=== PATIENT | male | born 1950 | race Caucasian/White ===

== ENCOUNTER 2018-03-10 20:54 | Emergency (ER) | payer OTHER ==
[~2018-03-10] VITALS: Ht 170.2 cm; Wt 81.7 kg
[~2018-03-10 20:54] MED LIST: ACETAMINOPHEN-1 EAC1 PO; BACTRIM DS TAB1 EACH PO; BACTROBAN CREAM30 G1 TOP; BACTROBAN CREAM30 GM; CEPHALEXIN 500500 M3 PO; CEPHALEXIN500 MG PO; KETOCONAZOLE 2200 MG PO; LEVAQUIN 500 M500 M2 PO; LOTRISONE CREAM15 GM TOP; NIZORAL A-D200 ML TOP; NOHOMEMEDICATIONS; NORCO 5-325 TA1 EACH PO; PAXIL10 MG PO; TESSALON PERLE100 MG PO; ZPAK PO; ZYRTEC10 M2 PO
[2018-03-10 21:04] VITALS: BP 141/90
[2018-03-10] MEDS ORDERED: ZPAK PO (21:06)
[2018-03-10] MEDS ORDERED: HYDROCODONE-AP1 EAC6 PO (21:06)
[2018-03-10] MEDS ORDERED: CIPROFLOXIN HC2.5 M1 OTIC (21:06)
== END 2018-03-10 21:13 | disposition home or self-care (01) ==
LOC: M.ERS 20:54
DX: H66.91 Otitis media, unspecified, right ear (principal); H60.91 Unspecified otitis externa, right ear; F17.210 Nicotine dependence, cigarettes, uncomplicated; Z88.0 Allergy status to penicillin

== ENCOUNTER 2018-07-19 10:12 | Emergency (ER) | payer OTHER ==
[~2018-07-19] VITALS: Ht 170.2 cm; Wt 83.9 kg
[~2018-07-19 10:12] MED LIST changes: +CIPROFLOXIN HC2.5 M1 OTIC; +HYDROCODONE-AP1 EAC6 PO
[2018-07-19] MEDS ORDERED: ANTACID EXTRA300 MG PO (10:24)
[2018-07-19] MEDS ORDERED: KEFLEX500 M1 PO (10:46)
[2018-07-19] MEDS ORDERED: BACTRIM DS TAB1 EACH PO (10:46)
[2018-07-19] MEDS ORDERED: CENTANY30 GM TOP (10:47)
[2018-07-19 10:52] VITALS: BP 137/73
== END 2018-07-19 10:53 | disposition home or self-care (01) ==
LOC: M.ERS 10:12
DX: L03.031 Cellulitis of right toe (principal); F17.210 Nicotine dependence, cigarettes, uncomplicated; Z88.0 Allergy status to penicillin

== ENCOUNTER 2018-09-20 22:33 | Emergency (ER) | payer OTHER ==
[~2018-09-20] VITALS: Ht 170.2 cm; Wt 86.2 kg
[~2018-09-20 22:33] MED LIST changes: +ANTACID EXTRA300 MG PO; +CENTANY30 GM TOP; +KEFLEX500 M1 PO
[2018-09-20] MEDS ORDERED: ZANTAC 150MG T150 MG (22:43)
[2018-09-20 23:04] LABS: ABSOLUTE BASOPHILS 0.1 thou/uL (0.0-0.2); ABSOLUTE EOSINOPHILS 0.3 thou/uL (0.0-0.7); ABSOLUTE LYMPHOCYTES 2.9 thou/uL (0.8-5.3); ABSOLUTE MONOCYTES 1.3 thou/uL (0.0-1.2); ABSOLUTE NEUTROPHILS 2.7 thou/uL (1.6-8.1); BASOPHILS 0.8 %; EOSINOPHILS 4.1 %; HEMATOCRIT 42.6 % (42.0-52.0); LYMPHOCYTES 39.9 %; MCH 31.3 pg (26.0-34.0); MCHC 32.9 g/dL (28.0-37.0); MCV 95.1 fL (80.0-100.0); MONOCYTES 17.3 %; MPV 7.5 fl. (7.2-11.1); NUCLEATED RBCS 0 /100WBC; PLATELET COUNT* 227 thou/uL (150-400); POLYS 37.9 %; RBC 4.48 mil/uL (4.50-6.00); RDW-CV 13.5 % (10.5-14.5); WBC 7.2 thou/uL (4.0-11.0)
[2018-09-20 23:11] LABS: ANION GAP 6 mmol/L (7-16); BUN 14 mg/dL (7-18); CALCIUM 9.1 mg/dL (8.5-10.1); CHLORIDE 103 mmol/L (98-107); CO2 27 mmol/L (21-32); GLUCOSE 148 mg/dL (70-99); POTASSIUM 3.5 mmol/L (3.5-5.1); SODIUM 136 mmol/L (136-145)
[2018-09-20 23:21] LABS: ALBUMIN 3.9 g/dL (3.4-5.0); ALKALINE PHOSPHATASE 42 U/L (46-116); NT-PRO BRAIN NAT PEPTIDE 33 pg/mL (<300); SGOT 16 U/L (15-37); SGPT 17 U/L (30-65); TOTAL BILIRUBIN 1.3 mg/dL (<0.1-1.0); TROPONIN-I LEVEL <0.06 ng/mL (<0.06)
[2018-09-21 00:15] VITALS: BP 155/78
--- NOTE | 2018-09-21 16:21 | EKG ---
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: Liana GOETZ : 1950 Requested By: Nancy Lam Order Number: [id number] MD: Braxton Leos Measurements Intervals [place] Rate: 84 P: 72 ND: 159 QRS: -20 QRSD: 109 T: 49 QT: 389 QTc: 460 Interpretive Statements Sinus rhythm Borderline left axis deviation Compared to ECG 09/04/2015 17:46:11 Sinus bradycardia no longer present Electronically Signed On 09-21-2018 16:21:22 SILICATOR by Braxton Leos [email or web address] <ELECTRONICALLY SIGNED> By: Braxton Leos MD, [facility] 09/21/18 1621 40 40 Braxton Leos MD, FACC /EPI
== END 2018-09-21 00:15 | disposition home or self-care (01) ==
LOC: M.ERS 22:33
PROVIDERS: Personal Emergency Response Attendant
DX: I10 Essential (primary) hypertension (principal); Z87.891 Personal history of nicotine dependence; Z88.0 Allergy status to penicillin

== ENCOUNTER 2018-11-09 05:58 | Emergency (ER) | payer OTHER ==
[~2018-11-09] VITALS: Ht 170.2 cm; Wt 81.7 kg
[~2018-11-09 05:58] MED LIST changes: +ZANTAC 150MG T150 MG
[2018-11-09] MEDS ORDERED: LISINOPRIL10 MG PO (06:07)
[2018-11-09 06:32] LABS: ABSOLUTE BASOPHILS 0.1 thou/uL (0.0-0.2); ABSOLUTE EOSINOPHILS 0.2 thou/uL (0.0-0.7); ABSOLUTE MONOCYTES 0.9 thou/uL (0.0-1.2); ABSOLUTE NEUTROPHILS 2.9 thou/uL (1.6-8.1); BASOPHILS 0.8 %; EOSINOPHILS 3.3 %; HEMATOCRIT 43.6 % (42.0-52.0); HEMOGLOBIN 14.7 gm/dL (14.0-18.0); LYMPHOCYTES 33.4 %; MCH 32.1 pg (26.0-34.0); MCHC 33.7 g/dL (28.0-37.0); MONOCYTES 15.5 %; MPV 7.2 fl. (7.2-11.1); NUCLEATED RBCS 0 /100WBC; PLATELET COUNT* 254 thou/uL (150-400); RBC 4.59 mil/uL (4.50-6.00); RDW-CV 13.4 % (10.5-14.5); WBC 6.1 thou/uL (4.0-11.0)
[2018-11-09 06:48] LABS: INR 0.9; PROTIME 9.7 Seconds (9.20-11.50)
[2018-11-09 06:57] LABS: ALBUMIN 3.8 g/dL (3.4-5.0); ALKALINE PHOSPHATASE 47 U/L (46-116); ANION GAP 10 mmol/L (7-16); BUN 17 mg/dL (7-18); CALCIUM 9.1 mg/dL (8.5-10.1); CHLORIDE 102 mmol/L (98-107); CO2 26 mmol/L (21-32); GLUCOSE 112 mg/dL (70-99); NT-PRO BRAIN NAT PEPTIDE 20 pg/mL (<300); POTASSIUM 3.7 mmol/L (3.5-5.1); SGOT 14 U/L (15-37); SGPT 17 U/L (30-65); SODIUM 138 mmol/L (136-145); TOTAL BILIRUBIN 0.9 mg/dL (<0.1-1.0); TOTAL PROTEIN 7.3 g/dL (6.4-8.2); TROPONIN-I LEVEL <0.06 ng/mL (<0.06)
[2018-11-09 07:23] VITALS: BP 137/73
--- NOTE | 2018-11-09 13:45 | EKG ---
[place] [address] ELECTROCARDIOGRAM REPORT Name: PEREZ URIBE [id number] Admission: 11/09/18 Attend Phys: Discharge: 11/09/18 Date of : 54 Report #: [id number] THIS REPORT FOR: //name// [facility] ED Test Date: 2018-11-09 Test Time: 06:14:18 Pat Name: PEREZ URIBE Department: Room: Gender: M First Assistant: : 1950 Requested By: Liz Ramires Order Number: [id number] MD: Asaf Osorio Measurements Intervals [place] Rate: 77 P: 40 OK: 175 QRS: -36 QRSD: 103 T: 63 QT: 384 QTc: 435 Interpretive Statements Sinus arrhythmia Left axis deviation Compared to ECG 09/20/2018 22:41:26 Sinus rhythm no longer present Electronically Signed On 11-09-2018 13:44:56 [employer] DIRECT[employer] by Asaf Osorio [email or web address] <ELECTRONICALLY SIGNED> By: Asaf Osoroi MD, [facility] 11/09/18 1344 0614 3 Asaf Osorio MD, FACC /EPI
== END 2018-11-09 07:24 | disposition home or self-care (01) ==
LOC: M.ERS 05:58
PROVIDERS: Emergency Medicine
DX: R03.0 Elevated blood-pressure reading, without diagnosis of hypertension (principal); R00.2 Palpitations; Z88.0 Allergy status to penicillin; Z87.891 Personal history of nicotine dependence; Z98.890 Other specified postprocedural states

== ENCOUNTER 2019-02-20 01:29 | Emergency (ER) | payer OTHER ==
[~2019-02-20] VITALS: Ht 170.2 cm; Wt 83.9 kg
[~2019-02-20 01:29] MED LIST changes: +LISINOPRIL10 MG PO
[2019-02-20] MEDS ORDERED: PROTONIX40 M1 (01:41)
[2019-02-20] MEDS ORDERED: DOXYCYCLINE 10100 MG (01:42)
[2019-02-20 02:10] LABS: ABSOLUTE EOSINOPHILS 0.1 thou/uL (0.0-0.7); ABSOLUTE LYMPHOCYTES 1.2 thou/uL (0.8-5.3); ABSOLUTE MONOCYTES 1.6 thou/uL (0.0-1.2); ABSOLUTE NEUTROPHILS 6.7 thou/uL (1.6-8.1); BASOPHILS 0.3 %; EOSINOPHILS 1.4 %; HEMATOCRIT 42.5 % (42.0-52.0); HEMOGLOBIN 14.5 gm/dL (14.0-18.0); LYMPHOCYTES 12.1 %; MCH 31.7 pg (26.0-34.0); MCHC 34.1 g/dL (28.0-37.0); MCV 93.1 fL (80.0-100.0); MONOCYTES 16.5 %; NUCLEATED RBCS 0 /100WBC; PLATELET COUNT* 245 thou/uL (150-400); POLYS 69.7 %; RBC 4.56 mil/uL (4.50-6.00); RDW-CV 13.4 % (10.5-14.5); WBC 9.7 thou/uL (4.0-11.0)
[2019-02-20 02:28] LABS: ANION GAP 10 mmol/L (7-16); BUN 14 mg/dL (7-18); CALCIUM 9.1 mg/dL (8.5-10.1); CHLORIDE 96 mmol/L (98-107); CO2 25 mmol/L (21-32); CREATININE 0.9 mg/dL (0.6-1.3); GLUCOSE 106 mg/dL (70-99); POTASSIUM 3.7 mmol/L (3.5-5.1); SODIUM 131 mmol/L (136-145); TROPONIN-I LEVEL <0.06 ng/mL (<0.06)
[2019-02-20 02:29] LABS: ALKALINE PHOSPHATASE 50 U/L (46-116); LIPASE 131 U/L (73-393); NT-PRO BRAIN NAT PEPTIDE 54 pg/mL (<300); SGOT 21 U/L (15-37); SGPT 19 U/L (30-65); TOTAL BILIRUBIN 2.5 mg/dL (<0.1-1.0); TOTAL PROTEIN 7.4 g/dL (6.4-8.2)
[2019-02-20] MEDS ORDERED: PREDNISONE50 MG PO (04:40)
[2019-02-20] MEDS ORDERED: ZOFRAN ODT4 MG PO (04:41)
[2019-02-20] MEDS ORDERED: PROAIR HFA8.5 GM INH (04:46)
[2019-02-20] MEDS ORDERED: AEROCHAMBER PL1 EACH INH (04:46)
[2019-02-20 05:01] VITALS: BP 121/59
--- NOTE | 2019-02-20 11:57 | EKG ---
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 02/20/19 1157 0149 0149 Braxton Leos MD, [facility] /EPI
== END 2019-02-20 05:03 | disposition home or self-care (01) ==
LOC: M.ERS 01:29
PROVIDERS: Emergency Medicine
DX: J18.9 Pneumonia, unspecified organism (principal); Z87.891 Personal history of nicotine dependence; Z88.0 Allergy status to penicillin

== ENCOUNTER 2019-11-11 01:44 | Emergency (ER) | payer OTHER ==
[~2019-11-11] VITALS: Ht 170.2 cm; Wt 81.7 kg
[~2019-11-11 01:44] MED LIST changes: +AEROCHAMBER PL1 EACH INH; +DOXYCYCLINE 10100 MG; +PREDNISONE50 MG PO; +PROAIR HFA8.5 GM INH; +PROTONIX40 M1; +ZOFRAN ODT4 MG PO
[2019-11-11] MEDS ORDERED: PREDNISONE 20 M20 M1 PO (02:37)
[2019-11-11] MEDS ORDERED: PROAIR HFA8.5 GM INH (02:37)
[2019-11-11 02:49] VITALS: BP 145/87
[2019-11-11 02:52] LABS: INFLUENZA A ANTIGEN Negative (Negative); INFLUENZA B ANTIGEN Negative (Negative)
== END 2019-11-11 02:50 | disposition home or self-care (01) ==
LOC: M.ERS 01:44
PROVIDERS: Emergency Medicine
DX: R05 Cough (principal); Z87.891 Personal history of nicotine dependence; Z88.0 Allergy status to penicillin

== ENCOUNTER 2020-03-16 02:42 | Emergency (ER) | payer OTHER ==
[~2020-03-16] VITALS: Ht 170.2 cm; Wt 80.7 kg
[~2020-03-16 02:42] MED LIST changes: +PREDNISONE 20 M20 M1 PO
[2020-03-16 02:51] VITALS: BP 148/61
[2020-03-16] MEDS ORDERED: FLONASE 0.05%50 MCG NARES (02:58)
[2020-03-16] MEDS ORDERED: CEFDINIR300 MG PO (02:58)
[2020-03-16] MEDS ORDERED: CORTISPORIN OTI10 M2 OTIC (02:58)
== END 2020-03-16 03:05 | disposition home or self-care (01) ==
LOC: M.ERS 02:42
DX: H66.92 Otitis media, unspecified, left ear (principal); Z88.0 Allergy status to penicillin; Z87.891 Personal history of nicotine dependence

== ENCOUNTER 2020-06-25 18:01 | Emergency (ER) | payer OTHER ==
[~2020-06-25] VITALS: Ht 170.2 cm; Wt 79.4 kg
[~2020-06-25 18:01] MED LIST changes: +CEFDINIR300 MG PO; +CORTISPORIN OTI10 M2 OTIC; +FLONASE 0.05%50 MCG NARES
[2020-06-25 18:09] VITALS: BP 152/81
[2020-06-25] MEDS ORDERED: OMEPRAZOLE 20 M20 M1 PO (18:17)
[2020-06-25] MEDS ORDERED: SINGULAIR 10 MG10 MG PO (18:18)
[2020-06-25] MEDS ORDERED: NEO-POLYMYXIN-H10 ML EA. EAR (18:22)
== END 2020-06-25 18:36 | disposition home or self-care (01) ==
LOC: M.ERS 18:01
DX: H60.91 Unspecified otitis externa, right ear (principal); Z87.891 Personal history of nicotine dependence; Z88.0 Allergy status to penicillin

== ENCOUNTER 2020-10-31 20:07 | Emergency (ER) | payer OTHER ==
[~2020-10-31] VITALS: Ht 170.2 cm; Wt 81.7 kg
[~2020-10-31 20:07] MED LIST changes: +NEO-POLYMYXIN-H10 ML EA. EAR; +OMEPRAZOLE 20 M20 M1 PO; +SINGULAIR 10 MG10 MG PO
[2020-10-31] MEDS ORDERED: CORTISPORIN OTI10 M2 OTIC (20:50)
[2020-10-31] MEDS ORDERED: KEFLEX500 M1 PO (20:50)
[2020-10-31 21:02] VITALS: BP 141/97
== END 2020-10-31 21:02 | disposition home or self-care (01) ==
LOC: M.ERS 20:07
DX: H66.91 Otitis media, unspecified, right ear (principal); H60.91 Unspecified otitis externa, right ear; J44.9 Chronic obstructive pulmonary disease, unspecified; Z87.891 Personal history of nicotine dependence; Z88.0 Allergy status to penicillin; Z79.899 Other long term (current) drug therapy; Z98.890 Other specified postprocedural states

== ENCOUNTER 2021-08-25 11:29 | Emergency (ER) | payer OTHER ==
[~2021-08-25] VITALS: Ht 170.2 cm; Wt 81.7 kg
[2021-08-25 12:05] LABS: ABSOLUTE EOSINOPHILS 0.1 thou/uL (0.0-0.7); ABSOLUTE LYMPHOCYTES 1.5 thou/uL (0.8-5.3); ABSOLUTE NEUTROPHILS 4.1 thou/uL (1.6-8.1); BASOPHILS 0.6 %; EOSINOPHILS 1.3 %; HEMATOCRIT 42.1 % (42.0-52.0); HEMOGLOBIN 14.5 gm/dL (14.0-18.0); MCH 32.1 pg (26.0-34.0); MCHC 34.5 g/dL (28.0-37.0); MCV 93.2 fL (80.0-100.0); MONOCYTES 15.3 %; MPV 6.8 fl. (7.2-11.1); NUCLEATED RBCS 0 /100WBC; PLATELET COUNT* 266 thou/uL (150-400); POLYS 60.8 %; RBC 4.52 mil/uL (4.50-6.00); WBC 6.8 thou/uL (4.0-11.0)
[2021-08-25 12:18] LABS: CALCIUM 9.4 mg/dL (8.5-10.1); POTASSIUM 4.1 mmol/L (3.5-5.1)
[2021-08-25 12:22] LABS: ALBUMIN 4.2 g/dL (3.4-5.0); TOTAL BILIRUBIN 1.9 mg/dL (<0.1-1.0); TOTAL PROTEIN 7.1 g/dL (6.4-8.2)
--- NOTE | 2021-08-25 12:54 | EKG ---
[place] [address] ELECTROCARDIOGRAM REPORT Name: PEREZ URIBE Room: [facility].R.#: [id number] Admission: Attend Phys: Discharge: Date of : 54 Date of Service: 08/25/21 1140 Report #: [id number] THIS REPORT FOR: //name// [facility] ED Test Date: 2021-08-25 Test Time: 11:40:08 Pat Name: PEREZ URIBE Department: Room: Gender: M Mh Teacher: : 1950 Requested By: Matheus Langston Order Number: [id number] MD: Asaf Osorio Measurements Intervals [place] Rate: 79 P: -67 IA: 180 QRS: -49 QRSD: 99 T: 69 QT: 372 QTc: 427 Interpretive Statements Ectopic atrial rhythm Left axis deviation Abnormal R-wave progression, late transition Compared to ECG 02/20/2019 01:49:17 Ectopic atrial rhythm now present Left-axis deviation now present Sinus rhythm no longer present ST (T wave) deviation no longer present Electronically Signed On 08-25-2021 12:54:06 CDT by Asaf Osorio [email or web address] <ELECTRONICALLY SIGNED> By: Asaf Osorio MD, FACC 08/25/21 1254 1140 1140 Asaf Osorio MD, FACC /EPI
[2021-08-25] MEDS ORDERED: CARAFATE 1 GM TA1 G1 PO (13:07)
[2021-08-25 13:22] VITALS: BP 133/75
== END 2021-08-25 13:22 | disposition home or self-care (01) ==
LOC: M.ERS 11:29
PROVIDERS: Family Medicine
DX: R10.814 Left lower quadrant abdominal tenderness (principal); R11.0 Nausea; J44.9 Chronic obstructive pulmonary disease, unspecified; F17.210 Nicotine dependence, cigarettes, uncomplicated; Z98.890 Other specified postprocedural states; Z88.0 Allergy status to penicillin

== ENCOUNTER 2022-01-12 08:06 | Emergency (ER) | payer OTHER ==
[~2022-01-12] VITALS: Ht 170.2 cm; Wt 88.5 kg
[~2022-01-12 08:06] MED LIST changes: +CARAFATE 1 GM TA1 G1 PO
[2022-01-12] MEDS ORDERED: BREZTRI AEROS10.7 GM INH (08:25)
[2022-01-12] MEDS ORDERED: PEPCID40 MG PO (08:25)
[2022-01-12] MEDS ORDERED: TESSALON PERLE100 MG PO (09:41)
[2022-01-12 10:05] VITALS: BP 138/87
== END 2022-01-12 10:05 | disposition home or self-care (01) ==
LOC: M.ERS 08:06
DX: J06.9 Acute upper respiratory infection, unspecified (principal); Z20.822 Contact with and (suspected) exposure to COVID-19; I10 Essential (primary) hypertension; J44.9 Chronic obstructive pulmonary disease, unspecified; Z98.890 Other specified postprocedural states; Z79.51 Long term (current) use of inhaled steroids; Z79.899 Other long term (current) drug therapy; Z88.0 Allergy status to penicillin; Z87.891 Personal history of nicotine dependence